=== PATIENT | male | born 1945 | race Caucasian/White ===

== ENCOUNTER 2016-11-08 12:59 | Inpatient (IN) | payer MEDICARE, BC ==
[2016-11-08] VITALS (11 sets, daily range): BP systolic 95–128; BP diastolic 63–75; PULSE 59–75; RESP 16–20; TEMP 98.1–98.3; O2SAT 94–98
[~2016-11-08] VITALS: Ht 182.9 cm; Wt 87.0 kg
[~2016-11-08 12:59] MED LIST: ASPI1TAB69 PO; ATOR20TA15 PO; HYDRCRY; LEVA750T PO; METO50TA PO; MORP1TAB25 PO; OMEP20TA PO; THEO200T9 PO; VENTAER INH; ZYRT10CA PO
[2016-11-08] MEDS ORDERED: SODIUM CHLORIDE 0.9% FLUSH 5 ML FLUSH IVF PRN (14:30)
[2016-11-08] MEDS ORDERED: MORPHINE SULFATE 4 MG/ML INJ IV PUSH ONE (14:30)
[2016-11-08] MEDS ORDERED: ONDANSETRON HCL 4 MG/2 ML VIAL IV PUSH ONE (14:30)
[2016-11-08 15:03] LABS: AUTOMATED NEUTROPHIL # 5.9 TH/MM3 (1.8-7.7); BASOPHIL % 0.5 % (0.0-2.0); EOSINOPHIL % 0.3 % (0.0-4.0); HEMATOCRIT 24.6 % (39.0-51.0); HEMO FLAGS DIFF FINAL; LYMPH % 13.6 % (9.0-44.0); LYMPHOCYTE # 1.1 TH/MM3 (1.0-4.8); MEAN CELL VOLUME 83.8 FL (80.0-100.0); MEAN CORPUSCULAR HEMOGLOBIN 27.2 PG (27.0-34.0); MEAN CORPUSCULAR HGB CONC 32.4 % (32.0-36.0); MONO % 12.2 % (0.0-8.0); NEUT % 73.4 % (16.0-70.0); PLATELET COUNT 202 TH/MM3 (150-450); RED BLOOD COUNT 2.93 MIL/MM3 (4.50-5.90); RED CELL DISTRIBUTION WIDTH 16.9 % (11.6-17.2); WHITE BLOOD COUNT 8.1 TH/MM3 (4.0-11.0)
[2016-11-08 15:12] LABS: APTT (PATIENT) 30.7 SEC (24.3-30.1); INTERNATIONAL NORMALIZED RATIO 1.2 RATIO; PROTHROMBIN TIME - PATIENT 12.8 SEC (9.8-11.6)
[2016-11-08 15:32] LABS: ANION GAP 8 MEQ/L (5-15); BICARBONATE 29.8 MEQ/L (21.0-32.0); BLOOD UREA NITROGEN 12 MG/DL (7-18); CHLORIDE 101 MEQ/L (98-107); GLOMERULAR FILTRATION RATE 88 ML/MIN (>89); MAGNESIUM 1.1 MG/DL (1.5-2.5); POTASSIUM 3.5 MEQ/L (3.5-5.1); SODIUM (NA) 139 MEQ/L (136-145)
[2016-11-08 15:39] LABS: CREATINE KINASE 41 U/L (39-308)
[2016-11-08] MEDS ORDERED: IOHEXOL 350 MG/ML 10 ML VIAL (for RAD DIAG) IV ONE (15:52)
--- NOTE | 2016-11-08 16:07 | RADRPT ---
EXAM DATE/TIME: 11/08/2016 15:21 [facility] COMPARISON: CHEST EXPIRATION ONLY, August 30, 2016, 12:32. CT PULMONARY ANGIOGRAM, November 08, 2016, 15:51. C HEST SINGLE AP, October 05, 2016, 21:56. INDICATIONS : Chest pain. MEDICAL HISTORY : Hypertension. Carcinoma, lung. SURGICAL HISTORY : Infusaport. ENCOUNTER: Initial ACUITY: 2 days PAIN SCORE: 6/10 LOCATION: Bilateral chest FINDINGS: Large pulmonary masses identified on previous studies continued to significantly decrease in size. Th ere is residual parenchymal opacity in the left base and right upper lung field. There is no evidence of acute airspace disease or new pulmonary masses. Heart and mediastinal structures are stable. [id number] remains in good position. CONCLUSION: Continued decrease in size of bilateral pulmonary masses. No evidence of acute cardiopulmonary process. Devin Fry MD on November 08, 2016 at 16:02 Board Certified Radiologist. This report was verified electronically.
--- NOTE | 2016-11-08 16:13 | RADRPT ---
EXAM DATE/TIME: 11/08/2016 15:51 [facility] COMPARISON: CTA CHEST W 3D RECON, November 13, 2012, 17:23. INDICATIONS : Diffuse chest pain which radiates to back for 3 days; evaluate for pulmonary embolism. IV CONTRAST: 75 cc Omnipaque 350 (iohexol) IV RADIATION DOSE: 23.48 CTDIvol (mGy) MEDICAL HISTORY : Cardiovascular disease. Hypertension. Bone, lung, and liver cancer. SURGICAL HISTORY : None. ENCOUNTER: Initial ACUITY: 3 days PAIN SCALE: 5/10 LOCATION: Diffuse chest. TECHNIQUE: Volumetric scanning of the chest was performed using a pulmonary embolism protocol MIP images were re constructed. Using automated exposure control and adjustment of the mA and/or kV according to patien t size, radiation dose was kept as low as reasonably achievable to obtain optimal diagnostic quality images. FINDINGS: Examination quality is degraded by respiratory motion artifact. PULMONARY ARTERIES: No filling defects are seen in the pulmonary arteries through the segmental level. LUNGS: There is a focal dense consolidation with partial cavitation in the right upper lobe primarily in the posterior segment. There is also mild consolidation surrounding a cystic or cavitary area in the lef t upper lobe. In the right lower lobe there are at least 4 noncalcified pulmonary nodules measuring u p to 19 mm. No pneumothorax is present. There are calcified granulomas. PLEURAE: There is no pleural thickening or pleural effusion. MEDIASTINUM: There is coronary artery calcification. Calcified mediastinal and hilar lymph nodes are present. Ther e is also lymphadenopathy in a right paratracheal location measuring 3.0 x 1.6 cm, and a pretracheal region measuring 3.6 x 2.0 cm and in the right hilum measuring 2.8 cm. MUSCULOSKELETAL: There are degenerative changes of the thoracic spine. MISCELLANEOUS: The visualized upper abdominal organs demonstrate no acute abnormality. There is a low-density lesion in the right kidney is partially visualized measuring 3.2 cm and there is a low-density lesion at th e upper pole left kidney measuring 5.6 cm. Both have density measurements consistent with cysts. CONCLUSION: 1. No PE is identified. 2. Dense and partially cavitating airspace consolidation in the right upper lobe. Differential diagno sis includes infection versus malignancy. TB could have this appearance. 3. Multiple enlarged mediastinal and right hilar lymph nodes. These could be reactive secondary to in fectious process or related to malignancy. 4. There are 4 pulmonary nodules in the right lower lobe measuring up to 1.9 cm. Given the remaining findings metastatic disease is a consideration. Elio Montes MD on November 08, 2016 at 16:05 Board Certified Radiologist. This report was verified electronically.
[2016-11-08] MEDS ORDERED: SODIUM CHLOR 0.9% 250 ML INJ 250 ML IV ONE (17:45)
[2016-11-08] MEDS ORDERED: NALOXONE HCL 0.4 MG/ML AMP IV PRN (17:45)
[2016-11-08] MEDS ORDERED: AZITHROMYCIN INJ 500 MG in SODIUM CHLOR 0.9% 250 ML INJ 250 ML IV ONE (17:45)
[2016-11-08] MEDS ORDERED: cefTRIAXone INJ 1,000 MG in SODIUM CHLORIDE 0.9% INJ 100 ML IV ONE (17:45)
--- NOTE | 2016-11-08 18:11 | PD ---
HPI Chief Complaint: Chest Pain Time Seen by Provider: 14:16 Travel History International Travel<30 days: No Contact w/Intl Traveler<30days: No Traveled to known affect area: No History of Present Illness HPI 71-year-old male came to the emergency room with history of chest pain has been ongoing for past few days. He is developing a cough that's productive associated with worsening pain when he coughs. No history of fever or chills. Patient has history of lung cancer and is currently going through chemotherapy. His oncologist is Dr. Cuevas. is here with him and said they called his office and was recommended to go to the emergency room. Vital signs were stable in the emergency room. No recent procedures or prolonged hospitalization. [facility] Past Medical History Narrative Medical List of his past medical history as reviewed from the nursing note. Asthma: Yes Autoimmune Disease: No Cancer: Yes (bone, lung liver) Cardiovascular Problems: Yes () High Cholesterol: Yes Chemotherapy: Yes (LUNG CA+ METASTASIS TO THE BONE) Coronary Artery Disease: Yes (HEART ATTACK) Diabetes: No Diminished Hearing: No Endocrine: No Gastrointestinal Disorders: Yes (GERD) Genitourinary: Yes Hepatitis: No Hiatal Hernia: Yes Hypertension: Yes Immune Disorder: No Musculoskeletal: Yes (pain in hips) Neurologic: No Psychiatric: Yes (depression) Reproductive: No Respiratory: Yes (asthma, lung cancer) Thyroid Disease: No Tetanus Vaccination: > 5 Years Influenza Vaccination: No Past Surgical History Abdominal Surgery: No AICD: No Cardiac Surgery: No Ear Surgery: No Endocrine Surgery: No Eye Surgery: Yes (cataract bilat) Genitourinary Surgery: No Gynecologic Surgery: No Joint Replacement: No Oral Surgery: No Pacemaker: No Thoracic Surgery: No Other Surgery: Yes (angioplasty, cataract, PORT R UPPER CHEST) Social History Alcohol Use: No Tobacco Use: No (QUIT IN NOV) Substance Use: No Allergies-Medications (Allergen,Severity, Reaction): Coded Allergies: No Known Allergies (Unverified , 11/08/16) Comments No known drug allergies. Reported Meds & Prescriptions Reported Meds & Active Scripts Active Reported Morphine ER (Morphine Sulfate) 30 Mg Tab 30 Mg PO BID Hydrocodone Bitartrate (Hydrocodone Bitartrate (Bulk)) 1 Cry Cry 1 Tab 5 TIMES A DAY Omeprazole 20 Mg Tab 20 Mg PO DAILY Theophylline ER 12 HR (Theophylline) 200 Mg Tab 200 Mg PO Q12H Aspirin 81 Mg Tabdr 81 Mg PO DAILY Metoprolol Tartrate 50 Mg Tab 50 Mg PO DAILY Atorvastatin (Atorvastatin Calcium) 20 Mg Tab 20 Mg PO HS Zyrtec Allergy (Cetirizine HCl) 10 Mg Cap 10 Mg PO BID Ventolin Hfa 18 GM Inh (Albuterol Sulfate) 90 Mcg/Act Aer 2 Puff INH Q4H PRN Narrative Medication List of his medications reviewed from the nursing note. Review of Systems Except as stated in HPI: all other systems reviewed are Neg Physical Exam Narrative GENERAL: Awake, alert, looks older than his age, frail, moderate distress SKIN: Warm and dry. Pale HEAD: Atraumatic. Normocephalic. EYES: Pupils equal and round. No scleral icterus. No injection or drainage. ENT: No nasal bleeding or discharge. Mucous membranes pink and moist. NECK: Trachea midline. No JVD. CARDIOVASCULAR: Regular rate and rhythm. No murmur appreciated. RESPIRATORY: No accessory muscle use. Coarse breath sounds bilaterally GASTROINTESTINAL: Abdomen soft, non-tender, nondistended. Hepatic and splenic margins not palpable. MUSCULOSKELETAL: No obvious deformities. No clubbing. No cyanosis. No edema. NEUROLOGICAL: Awake and alert. No obvious cranial nerve deficits. Motor grossly within normal limits. Normal speech. PSYCHIATRIC: Appropriate mood and affect; insight and judgment normal. Data Data Last Documented VS Vital Signs Date Time Temp Pulse Resp B/P Pulse Ox O2 Delivery O2 Flow Rate FiO2 11/08/16 17:29 59 16 128/72 97 Room Air 11/08/16 13:02 98.1 Orders Electrocardiogram (11/08/16 14:16) Basic Metabolic Panel (Bmp) (11/08/16 14:16) Ckmb (Isoenzyme) Profile (11/08/16 14:16) Complete Blood Count With Diff (11/08/16 14:16) Magnesium (Mg) (11/08/16 14:16) Prothrombin Time / Inr (Pt) (11/08/16 14:16) Act Partial Throm Time (Ptt) (11/08/16 14:16) Troponin I (11/08/16 14:16) Chest, Single Ap (11/08/16 14:16) Ecg Monitoring (11/08/16 14:16) Bilateral Bp Monitoring (11/08/16 14:16) Iv Access Insert/Monitor (11/08/16 14:16) Oximetry (11/08/16 14:16) Oxygen Administration (11/08/16 14:16) Sodium Chloride 0.9% Flush (Ns Flush) (11/08/16 14:30) Ct Pulmonary Angiogram (11/08/16 14:16) Morphine Inj (Morphine Inj) (11/08/16 14:30) Ondansetron Inj (Zofran Inj) (11/08/16 14:30) Type And Screen (11/08/16 14:20) Iohexol 350 Inj (Omnipaque 350 Inj) (11/08/16 15:52) Red Blood Cells (Rbc) (11/08/16 17:38) Blood Product Administration .UPON TRANSFUSION (11/08/16 17:38) Sodium Chlor 0.9% 250 Ml Inj (Ns 250 Ml (11/08/16 17:45) Admit Order (Ed Use Only) (11/08/16 17:38) Ceftriaxone Inj (Rocephin Inj) (11/08/16 17:45) Azithromycin Inj (Zithromax Inj) (11/08/16 17:45) Blood Culture (11/08/16 17:38) Lactic Acid (11/08/16 17:38) Labs Laboratory Tests Test 11/08/16 11/08/16 11/08/16 02:50 14:46 17:38 Total Creatine Kinase 40 U/L 41 U/L Troponin I LESS THAN 0.02 LESS THAN 0.02 NG/ML NG/ML White Blood Count 8.1 TH/MM3 Red Blood Count 2.93 MIL/MM3 Hemoglobin 8.0 GM/DL Hematocrit 24.6 % Mean Corpuscular Volume 83.8 FL Mean Corpuscular Hemoglobin 27.2 PG Mean Corpuscular Hemoglobin 32.4 % Concent Red Cell Distribution Width 16.9 % Platelet Count 202 TH/MM3 Mean Platelet Volume 7.6 FL Neutrophils (%) (Auto) 73.4 % Lymphocytes (%) (Auto) 13.6 % Monocytes (%) (Auto) 12.2 % Eosinophils (%) (Auto) 0.3 % Basophils (%) (Auto) 0.5 % Neutrophils # (Auto) 5.9 TH/MM3 Lymphocytes # (Auto) 1.1 TH/MM3 Monocytes # (Auto) 1.0 TH/MM3 Eosinophils # (Auto) 0.0 TH/MM3 Basophils # (Auto) 0.0 TH/MM3 CBC Comment DIFF FINAL Differential Comment Prothrombin Time 12.8 SEC Prothromb Time International 1.2 RATIO Ratio Activated Partial 30.7 SEC Thromboplast Time Sodium Level 139 MEQ/L Potassium Level 3.5 MEQ/L Chloride Level 101 MEQ/L Carbon Dioxide Level 29.8 MEQ/L Anion Gap 8 MEQ/L Blood Urea Nitrogen 12 MG/DL Creatinine 0.86 MG/DL Estimat Glomerular Filtration 88 ML/MIN Rate Random Glucose 104 MG/DL Calcium Level 7.7 MG/DL Magnesium Level 1.1 MG/DL Blood Type A POSITIVE A POSITIVE Antibody Screen NEGATIVE Blood Bank Comment Crossmatch Leukocyte-Reduced Red Blood Cells MDM Medical Decision Making Medical Screen Exam Complete: Yes Emergency Medical Condition: Yes Medical Record Reviewed: Yes Interpretation(s) Twelve-lead EKG was reviewed by me. Normal sinus rhythm, bradycardia, normal axis, nonspecific ST-T wave changes. Heart rate of 58 bpm. Differential Diagnosis ACS, non-STEMI, PE, pneumonia, worsening lung cancer Narrative Course 5:30 PM blood test were within normal limits. CAT scan was read as a cavitary lesion in the right upper lobe. I discussed the case with Dr. Cuevas who is patient's oncologist and he compared his old CAT scan in his office with the one from today and as per him the limitations look like they're responding to the chemotherapy. However he recommended the patient to get IV antibiotics since pneumonia was certainly a possibility in the setting of cavitary lesion from the cancer. Also the patient was anemic and he thought that patient would benefit from blood transfusion. I discussed all this with the patient as well has his and let them know about my discussion with Dr. Cuevas. There were agreeable to stay in the hospital and get these treatments. I have ordered IV Rocephin and Zithromax and transfusion with 2 units of PRBC. Critical Care Narrative Aggregate critical care time was 45 minutes. Time to perform other separately billable procedures was not included in the critical care time. My time did not include minutes spent treating any other patients simultaneously or on activities that did not directly contribute to the patient's treatment. The services I provided to this patient were to treat and/or prevent clinically significant deterioration that could result in: Chest pain, pneumonia, symptomatic anemia, blood transfusion I provided critical care services requiring my management, as noted below: Chart data review, documentation time, medication orders and management, vital sign assessments/reviewing monitor data, ordering and reviewing lab tests, ordering and interpreting/reviewing x-rays and diagnostic studies, care of the patient and discussion of the patient with the admitting physicians. Procedures EKG Prior to Arrival: No Physician Communication Physician Communication Dr. Cuevas Diagnosis Primary Impression: Chest pain Qualified Code: R07.9 - Chest pain, unspecified type Additional Impressions: Lung cancer Qualified Code: C34.90 - Malignant neoplasm of lung, unspecified laterality, unspecified part of lung Pneumonia Qualified Code: J18.9 - Pneumonia due to infectious organism, unspecified laterality, unspecified part of lung Symptomatic anemia Admitting Information Admitting Physician Requests: Admit Scripts Cefuroxime 500 Mg [id number] Mg PO BID #14 TAB Ref 0 Prov:Meera Jesus 11/09/16 Ibuprofen 400 Mg [id number] Mg PO Q8HR #90 TAB Ref 1 Prov:Meera Jesus 11/09/16 Britt Norton MD Nov 08, 2016 18:11
[2016-11-08] MEDS: HEPARIN SODIUM - SQ 10,000 UNITS/ML VIAL SQ SCH (19:35)
[2016-11-09] MEDS ORDERED: MORPHINE SULFATE 4 MG/ML INJ IV PRN (00:15)
[2016-11-09 00:16] VITALS: BP 113/74; PULSE 75; RESP 18; O2SAT 96
[2016-11-09 03:06] VITALS: BP 114/71; PULSE 74; RESP 18; O2SAT 99
[2016-11-09 03:45] LABS: CREATINE KINASE 40 U/L (39-308)
[2016-11-09 04:10] LABS: BICARBONATE 29.2 MEQ/L (21.0-32.0); POTASSIUM 3.2 MEQ/L (3.5-5.1)
[2016-11-09 04:24] LABS: CALCIUM-PROTEIN CORRECTED 7.9 MG/DL (8.5-10.1)
[2016-11-09 06:27] VITALS: BP 126/78; PULSE 65; RESP 18; O2SAT 92
[2016-11-09] MEDS ORDERED: IBUPROFEN 400 MG TAB PO SCH (07:30)
--- NOTE | 2016-11-09 08:08 | MB ---
cc: KIMBERYL GOODWIN MD FRIEDMAN, JEFFREY DATE OF CONSULTATION 11/09/2016 DATE OF 1945 [address] 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 TREATMENT HISTORY TO DATE The patient was initiated on palliative systemic therapy with carboplatin and Taxol in September of 2016; cycle one day one was on 09/30/2016. OTHER ONCOLOGIC DIAGNOSES Hypercalcemia of malignancy. CHIEF COMPLAINT Mr. Rasheed reports having developed chest pain which started from the right side of the chest and also involved the sternum, as well as the left side of the chest. He reports the pain started about three days ago after a particularly strong bout of coughing. HISTORY OF PRESENT ILLNESS Mr. Rasheed is a very pleasant 71-year-old male well-known to me from my outpatient practice. Mr. Rasheed was initially referred to me in August of 2016 after he was found to have multiple tumors involving his lungs. This is associated with severe pain in his right hip. He underwent imaging studies which revealed multiple hypermetabolic masses involving bilateral lungs as well as extensive metastatic bony disease to his axial skeleton. A CT-guided biopsy of one of the eligibility services representative lesions involving the lungs was performed in August of 2016 and pathologic findings were consistent with a poorly differentiated squamous cell carcinoma of the lung (PDL-1 expression less than 2%). The patient was initiated on palliative systemic therapy with carboplatin and Taxol in early September. He has thus far received two cycles. He was scheduled to receive cycle #3 on 11/11/2016. He presented to the hospital with complaints of chest pain after bouts of coughing. He denies fevers, chills, difficulty breathing or night sweats. PAST MEDICAL HISTORY 1. 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 2. Personal history of tobaccoism. 3. COPD 4. Obesity 5. Hypertension 6. Hyperlipidemia 7. Hypercalcemia of malignancy (now resolved) 8. Hemorrhoids 9. Coronary artery disease 10. Gout 11. Gastroesophageal reflux disease 12. Enlarged prostate 13. Asthma PAST SURGICAL HISTORY 1. Angioplasty for coronary artery disease. 2. Cataract surgery 3. CT-guided biopsy of right upper lobe of the lung mass. 4. Infusion port placement FAMILY HISTORY Parents are both , no known oncologic diagnoses in the family. SOCIAL HISTORY The patient is , he lives at home with his . He is a retired public accountant. ALLERGIES NO KNOWN DRUG ALLERGIES. MEDICATIONS Current inpatient medications were reviewed and include: 1. Calcium carbonate 1000 grams p.o. q12h 2. Morphine sulfate 4 mg IV q4h as needed for pain 3. Heparin 5000 units subcu q12h 4. Normal saline 75 cc/hour 5. He is status post ceftriaxone 1 gram IV x1 along with azithromycin 500 mg IV x1 REVIEW OF SYSTEMS A 13-point review of systems were obtained the following are the pertinent positives: CONSTITUTIONAL: The patient reports having had fatigue, decreased appetite and generally decreased energy level. He denies weight loss, fevers or chills. HEENT: The patient denies headaches, difficulty swallowing, soreness in the throat, nosebleeds. RESPIRATORY: He reports exertional dyspnea, but not more than baseline, he reports having had a recent dry cough, this was nonproductive, he reports pleuritic chest pain. He denies hemoptysis. CARDIOVASCULAR: Denies classical angina like chest pain, he does report having had right-sided chest pain and tenderness of the sternum. GI: Denies nausea, vomiting, diarrhea, hematochezia, melena. : Denies dysuria, hematuria, urinary incontinence. CARGO SURVEYOR: Denies any focal sensory or motor deficits. MUSCULOSKELETAL: Reports pain involving the chest and ribs. PHYSICAL EXAMINATION VITAL SIGNS: Reveal a temperature 98.3 degrees Fahrenheit, heart rate ranging between 63 and 75 beats a minute, blood pressure 126/78, O2 sats ranging between 95 and 92% on room air. Respiratory rate 18 and blood pressure 128/78. GENERAL PHYSICAL APPEARANCE: Mr. Rasheed is an elderly male, he appears to be somewhat frail and pale-appearing. He is laying in bed not acutely distressed. He converses with me in full sentences. HEENT: Head atraumatic, normocephalic, conjunctive are mildly pale, sclerae are anicteric, EOMI, PERRLA, oral exam no pharyngeal erythema. NECK: No palpable cervical or supraclavicular lymphadenopathy. RESPIRATORY: Prolonged expiratory phase, good air movement bilaterally. Some rhonchi. CARDIOVASCULAR: Regular rate and rhythm, S1-S2 with a faint systolic murmur heard over the aortic area. ABDOMEN: Protuberant belly, soft, nontender, nondistended no palpable organ enlargement. EXTREMITIES: Lower extremities have no pretibial edema or calf tenderness. CARGO SURVEYOR: No focal sensory or motor deficits. MUSCULOSKELETAL: The patient has point tenderness over the midportion of the sternum, he also has some tenderness along the left and right chest wall. IMAGING STUDIES CT angiogram dated 11/08/[address] [facility] reveals: 1. No evidence of pulmonary embolus. 2. Dense partially cavitated airspace consolidation in the right upper lobe. 3. Multiple enlarged mediastinal and hilar lymph nodes. There are four pulmonary nodules in the right lower lobe measuring 1.9 cm. On independent review, I did obtain the images of his previous PET/CT scan dating back to August of 2016. It appears that the previously noted massive lesions involving the right and the left lung have near completely resolved and in their absence there are what appear to be just open airspace blebs. The lesion mentioned in the right upper lobe which is partially cavitary which the radiologist commented may be infectious in etiology was in fact present on the original scan, this lesion had some cavitation previously. This cavitation is now more pronounced on the scan. ASSESSMENT Mr. Rasheed is a 71-year-old male who is well-known to me from my outpatient practice. He has been under my care for management of metastatic poorly differentiated squamous cell carcinoma of the lung. His treatment history thus far has included two cycles of carboplatin and Taxol, cycle number three is due on 11/11/2016. Based on his imaging scans, he seems to have had a very impressive response to treatment thus far. The cavitary lesion noted on the CT scan performed on 11/08/2016 likely appears to be some of the vestiges of one of the previous tumors. He comes into the hospital today because about a week ago he had a persistent cough, he tells me he thought he may have had bronchitis. He had difficult to expectorate phlegm. Shortly thereafter he felt an achy pain involving the sternum and his ribs. On exam today, he has point tenderness of his sternum as well as his ribs raising the possibility of him having some sort of costochondritis or actual musculoskeletal pain from the extensive coughing he has been doing. I reviewed his CT scans very carefully and in particular look at the bone windows of the sternum as well as the ribs and sounded to be no sclerotic or metastatic lesions, no fractures were identified either. RECOMMENDATIONS 1. Metastatic lung carcinoma: He seems to have had a very positive response to palliative systemic therapy. I would like to keep him on this going forward. 2. Chest pain: I suspect this is more musculoskeletal in nature. It may be helpful to start him on a nonsteroidal anti-inflammatories. It may also be beneficial to put him on a cough suppressant such as Robitussin DM or perhaps a codeine containing cough syrup. 3. Hypocalcemia: This patient previously had hypercalcemia of malignancy, this has since then resolved. I have requested repeat calcium level this morning. One of the potential causes of the hypocalcemia may be the previous bisphosphonate therapy delivered to him at my clinic for management of hypercalcemia. I have started him on calcium carbonate supplementation. 4. From an oncologic standpoint, I think Mr. Rasheed is doing well. I think his pain is likely musculoskeletal. Once this is controlled, he may be safely discharged. I have tentatively schedule him for followup with one of my associates on 11/11/2016, I will be out of town that day. I did talk to the patient about the good response to therapy, I also explained to him my assessment of his pain being more musculoskeletal. He is inpatient to go home, but I have asked him to be a little bit more patient until at least his pain is better controlled. MD IMANI Hayes/DAT /7:20 AM /7:47 AM
[2016-11-09 08:19] VITALS: BP 112/66; PULSE 77; RESP 18; O2SAT 93
[2016-11-09] MEDS: HEPARIN SODIUM - SQ 10,000 UNITS/ML VIAL SQ SCH (08:54)
[2016-11-09] MEDS: SODIUM CHLOR 0.45% 1000 ML INJ 1,000 ML IV SCH ×2 (08:55→09:03)
[2016-11-09] MEDS ORDERED: CALCIUM CARBONATE 1.25 GM (CA 500 MG) TAB PO SCH (09:00)
--- NOTE | 2016-11-09 09:42 | HHI.HP ---
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 Oncologist is Dr. Hirsch, vision is currently on palliative systemic therapy with carboplatin and Taxol. Patient presented to the emergency room complaining of chest pain that has been ongoing for the past few days. Indicates the pain is across sternum, tender to palpation, no radiation, associated with a cough that's productive of small amount of white sputum. No fever, no chills. Patient's called oncologist office and recommended to come to the emergency room. In the emergency room, patient was evaluated, vital signs were stable, patient afebrile. He was noted anemic, hemoglobin of 8, hematocrit 24.6. This appears to be patient's baseline. BMP was unremarkable except for hypomagnesemia, 1.1 and lactic acid 2.5. Imaging studies were completed Last Impressions Chest X-Ray 11/08/161415 Signed Impressions: Service Date/Time: Tuesday, November 08, 2016 15:21 - CONCLUSION: Continued decrease in size of bilateral pulmonary masses. No evidence of acute cardiopulmonary process. Devin Fry MD CT Angiography 11/08/161415 Signed Impressions: Service Date/Time: Tuesday, November 08, 2016 15:51 - CONCLUSION: 1. No PE is identified. 2. Dense and partially cavitating airspace consolidation in the right upper lobe. Differential diagnosis includes infection versus malignancy. TB could have this appearance. 3. Multiple enlarged mediastinal and right hilar lymph nodes. These could be reactive secondary to infectious process or related to malignancy. 4. There are 4 pulmonary nodules in the right lower lobe measuring up to 1.9 cm. Given the remaining findings metastatic disease is a consideration. Elio Montes MD Because of concern of possible pneumonia, blood cultures were obtained and patient was started on empiric antibiotics. Overnight, patient received 2 units of packed cells. Patient is examined in the emergency room, indicates he is feeling better. Patient has been evaluated by Dr. Hirsch who has cleared him for discharge. Chest pain is reproducible with palpation. Patient is due to have chemotherapy this Monday. Patient has been examined by attending, he will be discharged today on oral antibiotics and antitussives. (Meera Jesus) Review of Systems Constitutional: COMPLAINS OF: Fatigue, Weight loss, Change in appetite, DENIES : Diaphoretic episodes, Fever, Weight gain, Chills, Dizziness, Night Sweats Endocrine: DENIES: Heat/cold intolerance, Polydipsia, Polyuria, Polyphagia Ears, nose, mouth, throat: DENIES: Tinnitus, Hearing loss, Vertigo, Nasal discharge, Oral lesions, Throat pain, Hoarseness, Ear Pain, Running Nose, Epistaxis, Sinus Pain, Toothache, Odynophagia Respiratory: COMPLAINS OF: Cough, DENIES: Apneas, Snoring, Wheezing, Hemoptysis, Sputum production, Shortness of breath Cardiovascular: COMPLAINS OF: Chest pain, DENIES: Palpitations, Syncope, Dyspnea on Exertion, PND, Lower Extremity Edema, Orthopnea, Claudication Gastrointestinal: DENIES: Abdominal pain, Black stools, Bloody stools, Constipation, Diarrhea, Nausea, Vomiting, Difficulty Swallowing, Anorexia Genitourinary: DENIES: Sexual dysfunction, Urinary frequency, Urinary incontinence, Urgency, Hematuria, Dysuria, Nocturia, Penile Discharge, Testicular Pain, Testicular Swelling Musculoskeletal: DENIES: Joint pain, Muscle aches, Stiffness, Joint Swelling, Back pain, Neck pain Integumentary: DENIES: Abnormal pigmentation, Nail changes, Pruritus, Rash Hematologic/lymphatic: DENIES: Bruising, Lymphadenopathy Immunologic/allergic: DENIES: Eczema, Urticaria Neurologic: DENIES: Abnormal gait, Headache, Localized weakness, Paresthesias, Seizures, Speech Problems, Tremor, Poor Balance Psychiatric: DENIES: Anxiety, Confusion, Mood changes, Depression, Hallucinations, Agitation, Suicidal Ideation, Homicidal Ideation, Delusions ( Meera Jesus) Past Family Social History Past Medical History 1. 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 2. Personal history of tobaccoism. 3. COPD 4. Obesity 5. Hypertension 6. Hyperlipidemia 7. Hypercalcemia of malignancy (now resolved) 8. Hemorrhoids 9. Coronary artery disease 10. Gout 11. Gastroesophageal reflux disease 12. Enlarged prostate 13. Asthma Past Surgical History 1. Angioplasty for coronary artery disease. 2. Cataract surgery 3. CT-guided biopsy of right upper lobe of the lung mass. 4. Infusion port placement Reported Medications Reported Meds & Active Scripts Active Reported Morphine ER (Morphine Sulfate) 30 Mg Tab 30 Mg PO BID Hydrocodone Bitartrate (Hydrocodone Bitartrate (Bulk)) 1 Cry Cry 1 Tab 5 TIMES A DAY Omeprazole 20 Mg Tab 20 Mg PO DAILY Theophylline ER 12 HR (Theophylline) 200 Mg Tab 200 Mg PO Q12H Aspirin 81 Mg Tabdr 81 Mg PO DAILY Metoprolol Tartrate 50 Mg Tab 50 Mg PO DAILY Atorvastatin (Atorvastatin Calcium) 20 Mg Tab 20 Mg PO HS Zyrtec Allergy (Cetirizine HCl) 10 Mg Cap 10 Mg PO BID Ventolin Hfa 18 GM Inh (Albuterol Sulfate) 90 Mcg/Act Aer 2 Puff INH Q4H PRN ( Meera Jesus) Allergies: Coded Allergies: No Known Allergies (Unverified , 11/08/16) Active Ordered Medications Inpatient Medications Azithromycin 500 mg/Sodium Chloride 250 ml @ 250 mls/hr ONCE ONCE IV Last administered on 11/08/16 19:31; Start 11/08/16 at 17:45; Stop 11/08/16 at 18:44 ; Status DC Calcium Carbonate (Oscal) 1,000 mg Q12HR PO Last administered on 11/09/16 08: 57; Start 11/09/16 at 09:00 Ceftriaxone Sodium 1000 mg/ Sodium Chloride 100 ml @ 200 mls/hr ONCE ONCE IV Last administered on 11/08/16 18:24; Start 11/08/16 at 17:45; Stop 11/08/16 at 18:14; Status DC Heparin Sodium (Porcine) (Heparin Inj) 5,000 units Q12H SQ Last administered on 11/09/16 08:54; Start 11/08/16 at 20:00 Ibuprofen (Motrin) 400 mg Q8HR PO Last administered on 11/09/16 08:54; Start 11/09/16 at 07:30 IV Flush (NS Flush) 2 ml UNSCH PRN IVF FLUSH AFTER USING IV ACCESS; Start 11/08 at 14:30 Morphine Sulfate (Morphine Inj) 4 mg Q4H PRN IV PAIN 1-10 Last administered on 11/09/16 03:24; Start 11/09/16 at 00:15 Naloxone HCl (Narcan Inj) 0.4 mg UNSCH PRN IV SEE LABEL COMMENTS; Start at 17:45 Ondansetron HCl 4 mg 4 mg ONCE ONCE IV PUSH Last administered on 11/08/16 14: 55; Start 11/08/16 at 14:30; Stop 11/08/16 at 14:31; Status DC Sodium Chloride (10/31 NS 1000 ml Inj) 1,000 ml @ 75 mls/hr [id number] IV Last administered on 11/09/16 09:03; Start 11/08/16 at 17:39 Family History Parents are both , no known oncologic diagnoses in the family. Social History The patient is , he lives at home with his . He is a retired senior revenue accountant. No ETOH, no substance abuse, no smoking. (Meera Jesus) Physical Exam Vital Signs Vital Signs Date Time Temp Pulse Resp B/P Pulse Ox O2 Delivery O2 Flow Rate FiO2 11/09/16 08:19 77 18 112/66 93 Room Air 11/09/16 06:27 65 18 126/78 92 Room Air 11/09/16 05:17 18 11/09/16 03:06 74 18 114/71 99 11/09/16 00:16 75 18 113/74 96 11/08/16 23:04 75 18 110/70 94 Room Air 11/08/16 22:38 98.3 73 20 109/67 95 Room Air 11/08/16 22:22 98.3 71 18 108/64 97 Room Air 11/08/16 22:12 98.3 72 18 108/64 98 Room Air 11/08/16 19:38 62 18 120/75 97 Room Air 11/08/16 18:23 63 18 126/70 98 Room Air 11/08/16 17:29 59 16 128/72 97 Room Air 11/08/16 16:16 62 18 95/64 97 Room Air 11/08/16 14:49 112/67 100/63 11/08/16 14:20 18 97 Room Air 11/08/16 14:20 97 Room Air 11/08/16 14:20 62 18 96 Room Air 11/08/16 13:02 98.1 71 16 123/69 96 Room Air Physical Exam GENERAL: This is a well-nourished, well-developed patient, in no apparent distress. SKIN: No rashes, ecchymoses or lesions. Cool and dry. HEAD: Atraumatic. Normocephalic. No temporal or scalp tenderness. EYES: Pupils equal round and reactive. Extraocular motions intact. No scleral icterus. No injection or drainage. ENT: Nose without bleeding, purulent drainage or septal hematoma. Throat without erythema, tonsillar hypertrophy or exudate. Uvula midline. Airway patent. NECK: Trachea midline. No JVD or lymphadenopathy. Supple, nontender, no meningeal signs. CARDIOVASCULAR: Regular rate and rhythm without murmurs, gallops, or rubs. RESPIRATORY: Clear, slightly diminished at bases. Breath sounds equal bilaterally. No wheezes, rales, or rhonchi. Has a productive cough. Point tenderness mid sternum. GASTROINTESTINAL: Abdomen soft, non-tender, nondistended. No hepato-splenomegaly , or palpable masses. No guarding. MUSCULOSKELETAL: Extremities without clubbing, cyanosis, or edema. No joint tenderness, effusion, or edema noted. No calf tenderness. Negative Homans sign bilaterally. NEUROLOGICAL: Awake and alert. Cranial nerves II through XII intact. Motor and sensory grossly within normal limits. Five out of 5 muscle strength in all muscle groups. Normal speech. Laboratory Laboratory Tests Test 11/08/16 11/08/16 11/08/16 11/08/16 14:46 17:38 17:50 18:46 White Blood Count 8.1 Red Blood Count 2.93 Hemoglobin 8.0 Hematocrit 24.6 Mean Corpuscular Volume 83.8 Mean Corpuscular Hemoglobin 27.2 Mean Corpuscular Hemoglobin 32.4 Concent Red Cell Distribution Width 16.9 Platelet Count 202 Mean Platelet Volume 7.6 Neutrophils (%) (Auto) 73.4 Lymphocytes (%) (Auto) 13.6 Monocytes (%) (Auto) 12.2 Eosinophils (%) (Auto) 0.3 Basophils (%) (Auto) 0.5 Neutrophils # (Auto) 5.9 Lymphocytes # (Auto) 1.1 Monocytes # (Auto) 1.0 Eosinophils # (Auto) 0.0 Basophils # (Auto) 0.0 CBC Comment DIFF FINAL Differential Comment Prothrombin Time 12.8 Prothromb Time International 1.2 Ratio Activated Partial 30.7 Thromboplast Time Sodium Level 139 Potassium Level 3.5 Chloride Level 101 Carbon Dioxide Level 29.8 Anion Gap 8 Blood Urea Nitrogen 12 Creatinine 0.86 Estimat Glomerular Filtration 88 Rate Random Glucose 104 Calcium Level 7.7 Magnesium Level 1.1 Total Creatine Kinase 41 Troponin I LESS THAN 0.02 Blood Type A POSITIVE A POSITIVE A POSITIVE Antibody Screen NEGATIVE Blood Bank Comment Crossmatch Leukocyte-Reduced Red Blood Cells Lactic Acid Level 2.5 Test 11/08/16 11/09/16 20:50 02:50 Total Creatine Kinase 38 Troponin I 0.02 Sodium Level 142 Potassium Level 3.2 Chloride Level 103 Carbon Dioxide Level 29.2 Anion Gap 10 Blood Urea Nitrogen 11 Creatinine 0.70 Estimat Glomerular Filtration 111 Rate Random Glucose 90 Calcium Level 7.3 Protein Corrected Calcium 7.9 Total Protein 6.0 Date/Time Procedure Status Source Growth 11/08/16 17:50 Aerobic Blood Culture Received Blood Peripheral Pending 11/08/16 17:50 Anaerobic Blood Culture Received Blood Peripheral Pending (Meera Jesus) Result Diagram: 11/08/16 1446 11/09/16 0250 Imaging Last Impressions Chest X-Ray 11/08/16 1416 Signed Impressions: Service Date/Time: Tuesday, November 08, 2016 15:21 - CONCLUSION: Continued decrease in size of bilateral pulmonary masses. No evidence of acute cardiopulmonary process. Devin Fry MD CT Angiography 11/08/16 1416 Signed Impressions: Service Date/Time: Tuesday, November 08, 2016 15:51 - CONCLUSION: 1. No PE is identified. 2. Dense and partially cavitating airspace consolidation in the right upper lobe. Differential diagnosis includes infection versus malignancy. TB could have this appearance. 3. Multiple enlarged mediastinal and right hilar lymph nodes. These could be reactive secondary to infectious process or related to malignancy. 4. There are 4 pulmonary nodules in the right lower lobe measuring up to 1.9 cm. Given the remaining findings metastatic disease is a consideration. Elio Montes MD (Meera Jesus) Assessment and Plan Problem List: (1) Chest pain (2) Lactic acid acidosis (3) Lung cancer (4) Bone metastasis (5) Anemia (6) Hypocalcemia Assessment and Plan Admit to Dr. 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 No fever, no chills. Found with lactic acidosis. Chest pain atypical, likely musculoskeletal; possible bronchitis. -IV abx given, cultures negative -Dr. Hirsch's input appreciated, he has reviewed imaging studies, patient appears to be responding well to current treatment. There were no fractures noted. He has cleared pt. for discharge with follow up on Monday for scheduled chemotherapy. -Antitussives PRN -Morphine for pain management -Ibuprofen 400 mg q 8 -Duonebs PRN Hypocalcemia, was hypercalcemic initially -Continue Calcium carbonate tabs Anemia, symptomatic -S/P 2 units PRBC -Follow up lab work to be done by Dr. Hirsch Home medications reviewed, initiated as indicated. SCDs for DVT prophylaxis Plan of care discussed with attending, RN and pt. Pt. has been examined by oncologist, clear for discharge Patient will be discharged today Continue on oral antibiotics Continue with antitussives Follow-up with Dr. Hirsch on Monday for chemotherapy treatment Diet as tolerated Activity as tolerated Patient stable for discharge This patient was seen by myself and Dr. Garcia, this H/P is written on his behalf. (Meera Jesus) Assessment and Plan Patient seen and examined as above Meds and labs reviewed Previous notes reviewed Plan of care discussed with QUALITY CONTROL MANAGER Discussed with patient eli GI input (Laina Garcia MD) Problem Qualifiers (1) Chest pain: Qualified Code: R07.9 - Chest pain, unspecified type (2) Lung cancer: Qualified Code: C34.90 - Malignant neoplasm of lung, unspecified laterality, unspecified part of lung (3) Anemia: Qualified Code: D61.9 - Anemia due to bone marrow failure, unspecified bone marrow failure type Meera Jesus Nov 09, 2016 09:42 Laina Garcia MD Nov 09, 2016 16:12
[2016-11-09] MEDS ORDERED: CEFU1TAB20 PO (09:46)
[2016-11-09] MEDS ORDERED: IBUP400T20 PO (09:46)
--- NOTE | 2016-11-09 09:46 | HHI.DCPOC ---
Discharge Care Plan Diagnosis: (1) Cancer (2) Fever (3) Lung cancer (4) Chest pain (5) Pneumonia Your Health Problems Are: Chest Pain Cough Shortness of Breath Goals to Promote Your Health * To prevent worsening of your condition and complications * To maintain your health at the optimal level Directions to Meet Your Goals Take your medications as prescribed Follow your dietary instruction Follow activity as directed Keep your appointments as scheduled Take your immunizations and boosters as scheduled If your symptoms worsen call your PCP, if no PCP go to Urgent Care Center or Emergency Room Smoking is Dangerous to Your Health. Avoid second hand smoke Call the 24-hour hour crisis hotline for domestic abuse at Meera Jesus Nov 09, 2016 09:46
[2016-11-09 10:03] VITALS: BP 130/71; PULSE 78; RESP 18; TEMP 97.8; O2SAT 99
--- NOTE | 2016-11-09 11:18 | EKG ---
Date Performed: 11/09/2016 Time Performed: 02:41:03 PTAGE: 71 years EKG: Sinus rhythm WITH OCCASIONAL SUPRAVENTRICULAR PREMATURE COMPLEXES PROBABLE INFERIOR MYOCARDIAL INFARCTION ABNORMA L ECG PREVIOUS TRACING : 11/08/2016 21.31 Compared to prior tracing no significant change DOCTOR: Artie Fuentes Interpretating Date/Time 11/09/2016 11:16:16
--- NOTE | 2016-11-09 22:34 | EKG ---
Date Performed: 11/08/2016 Time Performed: 21:31:38 PTAGE: 71 years EKG: Sinus rhythm WITH FREQUENT SUPRAVENTRICULAR PREMATURE COMPLEXES INFERIOR MYOCARDIAL INFARCTION ABNORMAL ECG PREVIOUS TRACING : 11/08/2016 14.39 Compared to prior tracing no significant change DOCTOR: Artie Fuentes Interpretating Date/Time 11/09/2016 22:31:27
--- NOTE | 2016-11-09 22:45 | EKG ---
Date Performed: 11/08/2016 Time Performed: 14:39:02 PTAGE: 71 years EKG: Sinus rhythm PROBABLE INFERIOR MYOCARDIAL INFARCTION ABNORMAL ECG PREVIOUS TRACING : 11/13/2012 09.02 Compared to prior tracing no significant change DOCTOR: Artie Fuentes Interpretating Date/Time 11/09/2016 22:41:17
== END 2016-11-09 10:56 | disposition home or self-care (01) | DRG 191 ==
LOC: NEPC 12:59 → NEDA 17:42 → NEDH 21:42
PROVIDERS: ADMIT Specialist; ATTEND Specialist
PROC: 30233N1 Transfusion of Nonautologous Red Blood Cells into Peripheral Vein, Percutaneous Approach (ICD-10-PCS; principal; 2016-11-08)
DX: J44.0 Chronic obstructive pulmonary disease with (acute) lower respiratory infection (principal); E87.2 Acidosis; C79.51 Secondary malignant neoplasm of bone; C34.92 Malignant neoplasm of unspecified part of left bronchus or lung; C34.91 Malignant neoplasm of unspecified part of right bronchus or lung; E83.42 Hypomagnesemia; E83.51 Hypocalcemia; D64.9 Anemia, unspecified; J20.9 Acute bronchitis, unspecified; R07.89 Other chest pain; I25.10 Atherosclerotic heart disease of native coronary artery without angina pectoris; I10 Essential (primary) hypertension; J45.909 Unspecified asthma, uncomplicated; K21.9 Gastro-esophageal reflux disease without esophagitis; E78.5 Hyperlipidemia, unspecified; Z87.891 Personal history of nicotine dependence; Z98.61 Coronary angioplasty status; I25.2 Old myocardial infarction
CPT/HCPCS: 36430; 71010; 71275; 80048; 82550; 83605; 83735; 84155; 84484; 85025; 85610; 85730; 86850; 86900; 86901; 86920; 87040; 93005; 96374; 96375; J0456; J0696; J1644; J2270; J2405; J7050; P9016; Q9967

== ENCOUNTER 2016-12-16 20:46 | Emergency (ER) | payer MEDICARE, BC ==
[~2016-12-16] VITALS: Ht 180.3 cm; Wt 77.0 kg
[~2016-12-16 20:46] MED LIST changes: +CEFU1TAB20 PO; +IBUP400T20 PO; -LEVA750T PO
[2016-12-16 20:49] VITALS: BP 134/74; PULSE 74; RESP 18; TEMP 97.5
[2016-12-16] MEDS ORDERED: NAPR220T95 PO (21:02)
--- NOTE | 2016-12-16 21:10 | PD ---
HPI . Fracture right humerus Chief Complaint: Injury Time Seen by Provider: 20:52 Travel History International Travel<30 days: No Contact w/Intl Traveler<30days: No Traveled to known affect area: No History of Present Illness HPI Patient presents with a chief complaint of a fractured right humerus. He has lung cancer with known metastases to the bone. He states that he was trying to push up using his right arm and the arm just snapped. He then fell and was unable to get up because he was in an awkward position and was unable to use his right arm. He states that the arm broke prior to the fall. He reports no significant pain as long as he is keeping his arm still. He was given morphine , 4 mg, by EMS. [facility] Past Medical History Asthma: Yes Autoimmune Disease: No Cancer: Yes (bone, lung liver) Cardiovascular Problems: Yes () High Cholesterol: Yes Chemotherapy: Yes (LUNG CA+ METASTASIS TO THE BONE) Coronary Artery Disease: Yes (HEART ATTACK) Diabetes: No Diminished Hearing: No Endocrine: No Gastrointestinal Disorders: Yes (GERD) Genitourinary: Yes Hepatitis: No Hiatal Hernia: Yes Hypertension: Yes Immune Disorder: No Musculoskeletal: Yes (pain in hips) Neurologic: No Psychiatric: Yes (depression) Reproductive: No Respiratory: Yes (asthma, lung cancer) Thyroid Disease: No Past Surgical History Abdominal Surgery: No AICD: No Cardiac Surgery: No Ear Surgery: No Endocrine Surgery: No Eye Surgery: Yes (cataract bilat) Genitourinary Surgery: No Gynecologic Surgery: No Joint Replacement: No Oral Surgery: No Pacemaker: No Thoracic Surgery: No Other Surgery: Yes (angioplasty, cataract, PORT R UPPER CHEST) Social History Alcohol Use: No Tobacco Use: No (QUIT IN NOV) Substance Use: No Allergies-Medications (Allergen,Severity, Reaction): Coded Allergies: No Known Allergies (Unverified , 12/16/16) Reported Meds & Prescriptions Reported Meds & Active Scripts Active Zofran Odt (Ondansetron Odt) 8 Mg Tab 8 Mg SL Q8H PRN Percocet (Oxycodone-Acetaminophen) 10-325 mg Tab 1 Tab PO Q4H PRN Reported Aleve (Naproxen Sodium) 220 Mg Tab 440 Mg PO DAILY PRN Morphine ER (Morphine Sulfate) 30 Mg Tab 15 Mg PO BID Hydrocodone Bitartrate (Hydrocodone Bitartrate (Bulk)) 1 Cry Cry 1 Tab 5 TIMES A DAY Omeprazole 20 Mg Tab 20 Mg PO DAILY Theophylline ER 12 HR (Theophylline) 200 Mg Tab 200 Mg PO Q12H Aspirin 81 Mg Tabdr 81 Mg PO DAILY Metoprolol Tartrate 50 Mg Tab 50 Mg PO DAILY Atorvastatin (Atorvastatin Calcium) 20 Mg Tab 20 Mg PO HS Zyrtec Allergy (Cetirizine HCl) 10 Mg Cap 10 Mg PO BID Ventolin Hfa 18 GM Inh (Albuterol Sulfate) 90 Mcg/Act Aer 2 Puff INH Q4H PRN Review of Systems Except as stated in HPI: all other systems reviewed are Neg General / Constitutional: No: Fever, Chills Respiratory: Positive: Cough, Shortness of Breath Gastrointestinal: Positive: Nausea, Loss of Appetite Musculoskeletal: Positive: Pain Neurologic: Positive: Weakness Physical Exam Narrative GENERAL: This is an elderly man who is awake and alert and does not appear to be in any acute distress at this time SKIN: Warm and dry. HEAD: Atraumatic. Normocephalic. EYES: Pupils equal and round. ENT: No nasal bleeding or discharge. Mucous membranes pink and moist. NECK: Trachea midline. CARDIOVASCULAR: Regular rate and rhythm. RESPIRATORY: No accessory muscle use. GASTROINTESTINAL: Abdomen soft, non-tender, nondistended. MUSCULOSKELETAL: Obvious deformity of the right occiput humerus with tenderness to palpation, swelling and bruising. He does have normal distal pulses and normal movement and sensation distally. NEUROLOGICAL: Awake and alert. No obvious cranial nerve deficits. Motor grossly within normal limits. Normal speech. PSYCHIATRIC: Appropriate mood and affect; insight and judgment normal. Data Data Last Documented VS Vital Signs Date Time Temp Pulse Resp B/P Pulse Ox O2 Delivery O2 Flow Rate FiO2 12/16/16 20:57 95 Nasal Cannula 2 12/16/16 20:49 97.5 74 18 134/74 Orders Humerus (Min 2vws) (12/16/16 20:56) Ondansetron Inj (Zofran Inj) (12/16/16 21:45) Hydromorphone Pf Inj (Dilaudid Pf Inj) (12/16/16 22:00) ^ Consent (12/16/16 22:24) Fentanyl Inj (Fentanyl Inj) (12/16/16 22:30) Etomidate Inj (Amidate Inj) (12/16/16 22:30) Humerus (Min 2vws) (12/16/16 23:03) Sling Cradle Arm (12/16/16 ) Fiberglass Splint Elbow Adult (12/16/16 ) Ondansetron Inj (Zofran Inj) (12/16/16 23:15) [facility] Medical Decision Making Medical Screen Exam Complete: Yes Emergency Medical Condition: Yes Medical Record Reviewed: Yes (medical history significant for metastatic lung disease with metastases to the bone. He is being treated palliatively.) Differential Diagnosis Differential diagnosis of extremity trauma includes but is not limited to fracture, sprain or strain, dislocation, contusion Narrative Course Patient presents with what sounds like a pathological fracture of his right humerus. X-ray confirmed he suspected diagnosis of a right humerus fracture. Post reduction and splint x-ray is improved. Procedures Procedure Narrative After the risks and benefits were discussed the following procedure was performed: MODERATE SEDATION: The patient was placed on a court monitor and pulse oximetry. An ambu bag and suction was immediately available at bedside. The patient was monitored by the nurse and respiratory therapy. Oxygen saturation, heart rate and blood pressure were monitored. Procedural sedation was acheived using fentanyl 100 g followed by etomidate 15 mg. The patient was observed until awake and alert. Procedural Sedation time in attendance was 15 minutes. Reduction: The fracture was reduced with the assistance of the [employer]. A coaptation splint was applied. Diagnosis Primary Impression: Right humeral fracture Qualified Code: S42.341A - Closed displaced spiral fracture of shaft of right humerus, initial encounter Patient Instructions: General Instructions, Proximal Humerus Fracture (ED) Med/Other Pt SpecificInfo: Prescription(s) given Scripts Ondansetron Odt (Zofran Odt)8 Mg Tab8 Mg SL Q8H PRN (NAUSEA OR VOMITING) #30 TAB Ref 0 Prov:Neelima King MD 12/16/16 Oxycodone-Acetaminophen (Percocet)10-325 mg Tab1 Tab PO Q4H PRN (PAIN) #30 TAB Ref 0 Prov:Neelima King MD 12/16/16 Disposition: 01 DISCHARGE HOME Condition: Stable Neelima King MD Dec 16, 2016 21:09
[2016-12-16] MEDS ORDERED: ONDANSETRON HCL 4 MG/2 ML VIAL IV PUSH ONE ×2 (21:45→23:15)
[2016-12-16] MEDS ORDERED: HYDROmorphone HCL PF 1 MG/ML VIAL IV PUSH ONE (22:00)
--- NOTE | 2016-12-16 22:23 | RADRPT ---
EXAM DATE/TIME: 12/16/2016 21:32 [facility] COMPARISON: No previous studies available for comparison. INDICATIONS : Right arm pain post injury. MEDICAL HISTORY : Cardiovascular disease. Hypertension Bone, lung and liver cancer SURGICAL HISTORY : [id number] ENCOUNTER: Initial ACUITY: 1 day PAIN SCORE: 9/10 LOCATION: Right arm FINDINGS: There is an oblique fracture through the proximal to mid aspect of the right humerus. There is some questionable lucency seen at the proximal fragment. This could suggest there may have been an underl wilbert lesion. The cortex appears striated laterally. The distal fragment is displaced proximally. Th e glenohumeral and elbow joints appear normally aligned. CONCLUSION: Proximal to mid humeral fracture. There is some suggestion there may be an underlyin g lesion seen as some questionable lucency at the proximal fragment and striations at the lateral cor jennifer. Elio Ramirez MD on December 16, 2016 at 22:14 Board Certified Radiologist. This report was verified electronically.
[2016-12-16] MEDS ORDERED: ETOMIDATE 20 MG/10 ML VIAL IV PUSH ONE (22:30)
[2016-12-16] MEDS ORDERED: PERC10TA27 PO (23:12)
[2016-12-16] MEDS ORDERED: ZOFR8TAB4 SL (23:12)
[2016-12-16 23:59] VITALS: BP 124/83; PULSE 85; RESP 18; O2SAT 100
--- NOTE | 2016-12-17 00:04 | RADRPT ---
EXAM DATE/TIME: 12/16/2016 23:19 [facility] COMPARISON: HUMERUS RIGHT (MIN 2VWS), December 16, 2016, 21:32. INDICATIONS : Post reduction of right arm fracture. MEDICAL HISTORY : Hypertension. Cardiovascular disease. Carcinoma, bone. Liver Ca SURGICAL HISTORY : [place] ENCOUNTER: Subsequent ACUITY: 1 day PAIN SCORE: 10/10 LOCATION: Right Arm FINDINGS: Closed reduction demonstrates marked improvement in the angulation with one shaft width lateral and p osterior displacement of the distal fracture fragment. CONCLUSION: Near-anatomic alignment following closed reduction Unruly Baltazar MD on December 17, 2016 at 0:01 Board Certified Radiologist. This report was verified electronically.
== END 2016-12-17 01:06 | disposition home or self-care (01) ==
LOC: NEPC 20:46
DX: S42.341A Displaced spiral fracture of shaft of humerus, right arm, initial encounter for closed fracture (principal); C34.90 Malignant neoplasm of unspecified part of unspecified bronchus or lung; C79.51 Secondary malignant neoplasm of bone; X50.0XXA Overexertion from strenuous movement or load, initial encounter
CPT/HCPCS: 24505; 73060; 96374; 96375; 99152; 99283; J1170; J2405; J3010